=== PATIENT | female | born 1940 | race Native Hawaiian/Other Pacific Islander ===

== ENCOUNTER 2017-02-05 06:30 | Day surgery (SDC) | payer OTHER, MEDICARE | END 2017-02-05 08:40 | disposition home or self-care (01) | LOC: OR 06:30 | PROC: 08RJ3JZ Replacement of Right Lens with Synthetic Substitute, Percutaneous Approach (ICD-10-PCS; principal; 2017-02-05) | DX: H25.811 Combined forms of age-related cataract, right eye (principal) | CPT/HCPCS: 66984; V2632 ==

== ENCOUNTER 2017-03-26 07:40 | Day surgery (SDC) | payer OTHER, MEDICARE | END 2017-03-26 11:15 | disposition home or self-care (01) | LOC: OR 07:40 | PROC: 08RK3JZ Replacement of Left Lens with Synthetic Substitute, Percutaneous Approach (ICD-10-PCS; principal; 2017-03-26) | DX: H25.812 Combined forms of age-related cataract, left eye (principal) | CPT/HCPCS: 66984; V2632 ==